=== PATIENT | male | born 1990 | race African-American/Black ===

== ENCOUNTER 2020-12-16 17:34 | Emergency (ER) | payer SELFPAY ==
[~2020-12-16] VITALS: Ht 172.7 cm; Wt 61.8 kg
[2020-12-16 18:26] LABS: HEMATOCRIT 45.3 % (42.0-54.0); HEMOGLOBIN 15.2 g/dL (13.5-17.5); MCH 29.8 pg (26.0-34.0); MCHC 33.6 g/dL (31.0-37.0); MCV 88.8 fL (80.0-100.0); MEAN PLATELET VOLUME 7.7 fL (7.4-10.4); PLATELET COUNT 210 10x3/uL (130-400); RBC 5.11 10x6/uL (4.20-6.10); RDW 13.8 % (11.5-14.5); WBC 3.9 10x3/uL (4.8-10.8)
[2020-12-16 18:32] VITALS: Ht 172.7 cm; Wt 61.8 kg
[2020-12-16 18:43] LABS: CALC OSMOLALITY 277 mosm/kg (275-300); CALCIUM 8.9 mg/dL (8.5-10.1); CARBON DIOXIDE 30.8 mmol/L (21.0-32.0); CHLORIDE - SERUM 101 mmol/L (98-107); CREATININE - SERUM 1.4 mg/dL (0.6-1.3); GLUCOSE 91 mg/dL (74-106); POTASSIUM - SERUM 3.9 mmol/L (3.5-5.1); SODIUM 138 mmol/L (136-145); UREA NITROGEN 19 mg/dL (7-18); eGFR NON AFRICAN AMERICAN 63 mL/min (90-120)
[2020-12-16 18:49] LABS: APTT 28.9 SECONDS (22.8-39.4); INR 1.06 (0.85-1.17); PROTIME 12.8 SECONDS (11.6-15.0)
[2020-12-16 18:59] LABS: EOSINOPHILS 1 % (0-7); LYMPHOCYTES 44 % (15-50); MONOCYTES 14 % (2-11); NEUTROPHILS 40 % (40-80); PLATELET ESTIMATE NORMAL
[2020-12-16 19:00] LABS: ALBUMIN 4.5 g/dL (3.4-5.0); ALKALINE PHOSPHATASE 66 U/L (30-120); ALT (SGPT) 34 U/L (10-68); CKMB 0.3 U/L (0.0-3.6); CREATINE KINASE 187 UL (21-232); PROTEIN - SERUM 8.5 g/dL (6.4-8.2)
[2020-12-16 19:07] LABS: TROPONIN-I < 0.017 ng/mL (0.000-0.060)
[2020-12-16] MEDS ORDERED: ZOFRAN ODT4 MG/UDTAB PO (20:01)
[2020-12-16 20:10] VITALS: BP 103/56
== END 2020-12-16 20:10 | disposition home or self-care (01) ==
LOC: D.ER 17:34
PROVIDERS: Family Medicine
DX: A08.4 Viral intestinal infection, unspecified (principal); R19.7 Diarrhea, unspecified; E86.0 Dehydration; R11.2 Nausea with vomiting, unspecified; R50.9 Fever, unspecified; M79.10 Myalgia, unspecified site; B34.9 Viral infection, unspecified